=== PATIENT | female | born 1975 | race Caucasian/White ===

== ENCOUNTER 2017-03-18 13:10 | Emergency (ER) | payer OTHER ==
[~2017-03-18] VITALS: Ht 167.6 cm; Wt 85.9 kg
[~2017-03-18 13:10] MED LIST: ADVIL CONGESTI1 EACH PO; CIPRO500 MG PO; COLACE100 MG PO; DIVALPROEX SOD500 MG PO; HYDROXYCHLOROQ200 MG PO; LEVOTHROID150 MCG PO; LEVOTHYROXINE150 MCG PO; LEVOXYL150 MCG PO; METAXALONE800 MG PO; MIRALAX17 GM PO; NEURONTIN300 MG PO; OLANZAPINE5 MG PO; PERCOCET 5/31 TABLET PO; PERCOCET 7.51 TABLET PO; PRAMIPEXOLE0.125 MG PO; PRILOSEC20 MG PO; PROMETHAZINE HC25 M1 PO; PROTONIX40 MG PO; TRAZODONE HCL50 MG PO; TYLENOL COLD M1 EAC1 PO; VICODIN 5-5001 EACH PO; WELLBUTRIN XL300 MG PO; XANAX0.5 MG PO; ZYPREXA2.5 MG PO
[2017-03-18] MEDS ORDERED: FLEXERIL5 MG PO (16:50)
[2017-03-18] MEDS ORDERED: PERCOCET 5/31 TABLET PO (16:50)
[2017-03-18 17:01] VITALS: BP 120/78
== END 2017-03-18 17:16 | disposition home or self-care (01) ==
LOC: EME 13:10
DX: M54.5 Low back pain (principal); E03.9 Hypothyroidism, unspecified; Z87.891 Personal history of nicotine dependence
CPT/HCPCS: 72100; 99281; 99283; J1100; J1170